=== PATIENT | female | born 1960 | race Caucasian/White ===

== ENCOUNTER 2020-06-28 13:03 | Emergency (ER) | payer OTHER ==
[~2020-06-28] VITALS: Ht 152.4 cm; Wt 45.4 kg
[2020-06-28 13:13] VITALS: BP 128/77
[2020-06-28 13:48] LABS: BASOPHILS % (AUTO) 0.7 % (0.0-2.0); EOSINOPHILS % (AUTO) 1.2 % (0.0-6.0); HEMATOCRIT 39 % (33-45); HEMOGLOBIN 12.8 g/dL (11.5-14.8); LYMPHOCYTES # (AUTO) 1.4 /CMM (0.8-4.8); LYMPHOCYTES % (AUTO) 23.2 % (20.0-44.0); MEAN CORPUSCULAR HGB CONC 33 g/dl (31.0-36.0); MEAN CORPUSCULAR VOLUME 93 fL (82-100); MONOCYTES # (AUTO) 0.5 /CMM (0.1-1.30); MONOCYTES % (AUTO) 7.9 % (2.0-12.0); PLATELET COUNT (AUTO) 307 /CMM (150-450)
[2020-06-28 13:56] LABS: CALCIUM, SERUM 9.2 mg/dL (8.5-10.1); CREATININE 0.9 mg/dL (0.6-1.3); POTASSIUM 4.1 mmol/L (3.5-5.1)
[2020-06-28 14:02] LABS: ALBUMIN 4.1 g/dL (3.4-5.0); BILIRUBIN,TOTAL 0.2 mg/dL (0.2-1.0); TOTAL PROTEIN, SERUM 7.8 g/dL (6.4-8.2)
== END 2020-06-28 16:09 | disposition home or self-care (01) ==
LOC: ER 13:05
DX: Z53.21 Procedure and treatment not carried out due to patient leaving prior to being seen by health care provider (principal)
CPT/HCPCS: 36415; 80053-TC; 85025-TC

== ENCOUNTER 2022-07-14 08:08 | Emergency (ER) | payer BC, OTHER ==
[~2022-07-14] VITALS: Ht 157.5 cm; Wt 57.2 kg
--- NOTE | 2022-07-14 08:15 | NUR ---
/PA AT BEDSIDE FOR EVAL
--- NOTE | 2022-07-14 08:35 | NUR ---
RAPID FLU AND COVID SWABS OBTAINED AND SENT TO LAB
[2022-07-14 08:37] VITALS: BP 131/61
--- NOTE | 2022-07-14 08:37 | NUR ---
Patient discharged to home in stable condition. Written and verbal after care instructions given. Patient verbalizes understanding of instruction.
== END 2022-07-14 08:38 | disposition home or self-care (01) ==
LOC: ER 08:13
DX: U07.1 COVID-19 (principal); Z88.1 Allergy status to other antibiotic agents; Z90.710 Acquired absence of both cervix and uterus
CPT/HCPCS: 99283; 87426; 87804 ×2; C9803

== ENCOUNTER 2023-10-30 09:43 | Emergency (ER) | payer BC, OTHER ==
[~2023-10-30] VITALS: Ht 154.9 cm; Wt 57.6 kg
[2023-10-30] MEDS ORDERED: IBUP-1955 PO (11:02)
[2023-10-30] MEDS ORDERED: KETOROLAC TROMETHAMINE 15 MG/ML VIAL ONE (11:30)
[2023-10-30] MEDS: KETOROLAC TROMETHAMINE 15 MG/ML VIAL IM ONE (11:35)
[2023-10-30 11:41] VITALS: BP 116/61; TEMP 98.3; O2SAT 99
== END 2023-10-30 11:42 | disposition home or self-care (01) ==
LOC: ER 09:51
DX: M17.12 Unilateral primary osteoarthritis, left knee (principal); M71.22 Synovial cyst of popliteal space [Baker], left knee; G89.29 Other chronic pain; R60.0 Localized edema; Z90.710 Acquired absence of both cervix and uterus; Z88.1 Allergy status to other antibiotic agents
CPT/HCPCS: 99285; 93971; 96372; 73564; J1885